=== PATIENT | male | born 1970 | race Caucasian/White ===

== ENCOUNTER 2019-11-26 12:15 | Inpatient (IN) ==
[2020-01-14] MEDS ORDERED: Lactated Ringers 1000 ml BAG 1,000 ML IV SCH (06:00)
[2020-01-14] MEDS ORDERED: ceFAZolin 2 GM PREMIX in ORs 2 GM/50 ML BAG ONE (06:10)
[2020-01-14] MEDS ORDERED: Propofol 10 MG/ML 20 ML BTL ONE (07:22)
[2020-01-14] MEDS ORDERED: Glycopyrrolate IV 0.2 MG/ML 1 ML VIAL ONE (07:22)
[2020-01-14] MEDS ORDERED: Succinylcholine 200 mg VIAL 20 mg/ml 10 ml VIAL (200 mg) ONE (07:22)
[2020-01-14] MEDS ORDERED: fentaNYL 100 mcg/2 ml 50 MCG/ML VIAL ONE ×5 (07:25→10:58)
[2020-01-14] MEDS ORDERED: Rocuronium 50 mg VIAL 10 mg/ml 5 ml VIAL (50 mg) ONE ×2 (07:26→08:17)
[2020-01-14] MEDS ORDERED: Bupivacaine 0.25% SDV 30 ML ONE (08:08)
[2020-01-14] MEDS ORDERED: Ondansetron 4 mg VIAL 2 MG/ML 2 ml VIAL IV PRN ×2 (08:30→10:15)
[2020-01-14] MEDS ORDERED: Naloxone 0.4 mg VIAL 0.4 mg/ml 1 ml VIAL IV PRN (08:30)
[2020-01-14] MEDS ORDERED: Ondansetron 4 mg VIAL 2 MG/ML 2 ml VIAL ONE (09:06)
[2020-01-14] MEDS ORDERED: Dexamethasone IV 4 MG/ML VIAL 1 ml VIAL ONE (09:06)
[2020-01-14] MEDS ORDERED: Esmolol 10 MG/ML 10 ML (100 mg) ONE (09:51)
[2020-01-14] MEDS ORDERED: diPHENhydraMINE 25 mg TAB PO PRN (10:15)
[2020-01-14] MEDS ORDERED: Magnesium Hydroxide LIQ 30 ML UDC PO PRN (10:15)
[2020-01-14] MEDS ORDERED: diPHENhydraMINE IV 50 MG/ML 1 ml VIAL (BENADRYL) IV PRN (10:15)
[2020-01-14] MEDS ORDERED: Lactulose 30 ml UDC PO PRN (10:15)
[2020-01-14] MEDS ORDERED: Ondansetron ODT 4 mg TAB 4 MG TAB PO PRN (10:15)
[2020-01-14] MEDS ORDERED: oxyCODONE/Acetamin 5/325 mg TAB PO PRN (10:23)
[2020-01-14] MEDS ORDERED: Albuterol HFA INHALER 8 gm MDI INH PRN (10:23)
[2020-01-14] MEDS: fentaNYL 100 mcg/2 ml 50 MCG/ML VIAL IV PRN ×5 (10:32→11:01)
[2020-01-14] MEDS ORDERED: HYDROmorphone 1 MG/1 ML SYRINGE IV PRN (10:39)
[2020-01-14] MEDS ORDERED: Morphine 2 MG/ML SYRINGE IV PRN (11:06)
[2020-01-14] MEDS ORDERED: HYDROmorphone 1 MG/1 ML SYRINGE ONE (11:07)
[2020-01-14] MEDS: D5W 1/2 NS 1000 ml BAG 1,000 ML IV SCH ×2 (11:30→20:28)
[2020-01-14] MEDS: ceFAZolin 1 GM ADVAN(*) 1 GM in NS 0.9% 50 ML 50 ML IVPB SCH (15:45)
[2020-01-14] MEDS ORDERED: NS 0.9% 500 ml BAG 500 ML IV ONE (19:15)
[2020-01-14 19:48] LABS: ABS Basophils 0.1 10^3/ul (0-0.2); ABS Lymphocytes 0.4 10^3/ul (1.0-4.8); ABS Monocytes 0.8 10^3/ul (0-0.8); Hematocrit 32 % (42-52); Hemoglobin 11.4 g/dL (14.0-18.0); Lymphocyte % 2.9 %; Mean Corpuscular HGB Conc 35 g/dL (31-36); Mean Corpuscular Hemoglobin 31 pg (27-31); Mean Corpuscular Volume 86 fL (80-94); Mean Platelet Volume 8.1 fL (7.4-10.4); Platelet Count 235 10^3/uL (150-450); Red Blood Count 3.73 10^6 /uL (4.18-5.48); Red Cell Distribution Width 13 % (10-15); White Blood Count 12.9 10^3/uL (3.5-10.8)
[2020-01-14 20:05] LABS: BUN/Creatinine Ratio 15.4 (8-20); Calcium 8.8 mg/dL (8.6-10.3); EGFR African American 75.4 (>60); EGFR Non-African American 62.3 (>60); Magnesium 1.8 mg/dL (1.9-2.7); Potassium 4.8 mmol/L (3.5-5.0)
[2020-01-14] MEDS ORDERED: Magnesium Sulfate 2 gm BAG 2 GM/50 ML BAG IVPB ONE (20:26)
[2020-01-14] MEDS: Magnesium Hydroxide LIQ 30 ML UDC PO SCH (20:47)
[2020-01-14 20:49] LABS: TSH (Thyroid Stimulating Horm) 0.67 mcIU/mL (0.34-5.60)
[2020-01-15] MEDS: ceFAZolin 1 GM ADVAN(*) 1 GM in NS 0.9% 50 ML 50 ML IVPB SCH ×2 (00:57→08:01)
[2020-01-15] MEDS: Magnesium Hydroxide LIQ 30 ML UDC PO SCH (08:04)
[2020-01-15 08:56] LABS: Hematocrit 32 % (42-52); Mean Platelet Volume 7.9 fL (7.4-10.4); Platelet Count 273 10^3/uL (150-450)
[2020-01-15] MEDS ORDERED: Vitamin THERAPEUTIC TAB PO SCH (09:00)
[2020-01-15 09:16] LABS: BUN/Creatinine Ratio 18.3 (8-20); Calcium 8.8 mg/dL (8.6-10.3); EGFR African American 86.6 (>60); EGFR Non-African American 71.6 (>60); Potassium 4.3 mmol/L (3.5-5.0)
[2020-01-15 12:35] VITALS: BP 130/67
== END 2020-01-15 14:20 | disposition home health service (06) | DRG 301 ==
LOC: AA 01-14 05:46 → INTOOBSV 01-14 05:46 → OBSVTOIN 01-14 05:46 → SSU 01-14 11:26
PROVIDERS: ADMIT Orthopaedic Surgery; ATTEND Orthopaedic Surgery